=== PATIENT | male | born 1980 | race Caucasian/White ===

== ENCOUNTER 2020-08-24 00:27 | Emergency (ER) | payer OTHER ==
[2020-08-24 00:39] VITALS: BP 171/101; PULSE 57; RESP 20; TEMP 97.8
--- NOTE | 2020-08-24 01:19 | XR ---
EXAMINATION TYPE: XR foot complete RT DATE OF EXAM: 08/24/2020 COMPARISON: NONE HISTORY: Foot pain TECHNIQUE: 3 views FINDINGS: Metatarsals are intact. I see no fracture nor dislocation. Joint spaces are fairly normal. The toes appear intact. IMPRESSION: Negative right foot exam.
--- NOTE | 2020-08-24 01:20 | XR ---
EXAMINATION TYPE: XR ankle complete RT DATE OF EXAM: 08/24/2020 COMPARISON: NONE HISTORY: Pain TECHNIQUE: 3 views FINDINGS: Ankle mortise is anatomic. I see no fracture nor dislocation. There is minimal soft tissue swelling over the lateral malleolus on the frontal view. Joint spaces are normal. IMPRESSION: Minimal soft tissue swelling. No fracture.
--- NOTE | 2020-08-24 01:23 | ED ---
Lower Extremity Injury HPI - General Chief Complaint: Extremity Injury, Lower Stated Complaint: Rt foot injury Time Seen by Provider: 08/24/20 00:41 Source: patient, family Mode of arrival: ambulatory Limitations: no limitations - History of Present Illness Initial Comments: 40-year-old male patient presents to the emergency department today for evaluati on of right ankle pain. Patient states that he was going over a fence and his right foot came down on a wooden stake causing forced eversion. Patient states that he has been having pain to the bilateral malleoli and over the dorsal foot since the injury. Denies numbness or tingling to the foot. Denies any knee pain. He has been icing, wearing an raza wrap, and elevating. Did take a norco which seemed to help the pain. Denies any fall, head injury, or other injuries. - Related Data Allergies Allergy/AdvReac Type Severity Reaction Status Date / Time No Known Allergies Allergy Verified 08/24/20 00:39 Review of Systems ROS Statement: Those systems with pertinent positive or pertinent negative responses have been documented in the HPI. ROS Other: All systems not noted in ROS Statement are negative. Past Medical History Additional Past Medical History / Comment(s): right elbow pain History of Any Multi-Drug Resistant Organisms: None Reported Past Surgical History: No Surgical Hx Reported Past Psychological History: No Psychological Hx Reported Smoking Status: Never smoker Past Alcohol Use History: Occasional Past Drug Use History: None Reported General Exam Limitations: no limitations General appearance: alert, in no apparent distress, other (Physical well- developed, well-nourished adult male patient) Respiratory exam: Present: normal lung sounds bilaterally. Absent: respiratory distress, wheezes, rales, rhonchi, stridor Cardiovascular Exam: Present: regular rate, normal rhythm, normal heart sounds. Absent: systolic murmur, diastolic murmur, rubs, gallop, clicks Extremities exam: Present: full ROM, tenderness (Bilateral malleoli), normal capillary refill, other (There is soft tissue swelling noted over the right lateral malleolus and over the dorsal aspect of the right foot. No bony tenderness over the metatarsals or tarsals. Skin pink, warm, dry. Cap refill less than 3 seconds. Pedal and posttibial pulses 2+.). Absent: pedal edema, joint swelling, calf tenderness Course Vital Signs 08/24/20 00:32 Temperature 97.8 F Pulse Rate 57 L Respiratory 20 Rate Blood Pressure 171/101 O2 Sat by Pulse 98 Oximetry Medical Decision Making - Medical Decision Making 40-year-old male patient presented for right ankle pain. X-rays were negative. He is able to ambulate. He is given ankle stirrup splint. Educated regarding rest, ice, elevation. He has pain medicine at home. He is instructed to follo w-up with his primary care physician a symptoms are not improved over the next week. Return parameters were discussed in detail. He verbalizes understanding and agrees with this plan. My attending is Dr. Vaca. - Radiology Data Radiology results: report reviewed, image reviewed Ankle shows minimal soft tissue swelling. No fracture. 3 views of the right foot showed negative exam. Disposition Clinical Impression: Right ankle sprain Disposition: HOME SELF-CARE Condition: Good Instructions (If sedation given, give patient instructions): Ankle Sprain (ED) Additional Instructions: Rest, ice, elevate the ankle. Use splint and Raza wrap for comfort and support. Follow-up with the primary care physician for recheck in 1 week if symptoms aren't improved. Return to the emergency department for any new, worsening, or concerning symptoms. Is patient prescribed a controlled substance at d/c from ED?: No Referrals: Nonstaff,Physician [REFERRING] - 1-2 days Time of Disposition: 01:23
== END 2020-08-24 01:30 | disposition home or self-care (01) ==
LOC: EC 00:27
DX: S93.401A Sprain of unspecified ligament of right ankle, initial encounter (principal); M25.572 Pain in left ankle and joints of left foot; X50.1XXA Overexertion from prolonged static or awkward postures, initial encounter
CPT/HCPCS: 73610; 73630; 99283; 29515; L4350